=== PATIENT | female | born 1940 | race Two or more races ===

== ENCOUNTER 2024-09-01 11:03 | Emergency (ER) | payer OTHER ==
[~2024-09-01] VITALS: Ht 157.5 cm; Wt 60.8 kg
[2024-09-01] MEDS ORDERED: PEPCID AC20 MG (11:10)
[2024-09-01] MEDS ORDERED: SYNTHROID50 MCG PO (11:10)
[2024-09-01] MEDS ORDERED: SIMVASTATIN20 MG PO (11:10)
[2024-09-01] MEDS ORDERED: CEFTRIAXONE SODIUM 1,000 MG VIAL IM STA (12:14)
[2024-09-01] MEDS ORDERED: KETOROLAC TROMETHAMINE 15 MG VIAL IM STA (12:14)
[2024-09-01] MEDS ORDERED: CEFTRIAXONE SODIUM 1,000 MG VIAL ONE (12:25)
[2024-09-01] MEDS ORDERED: KETOROLAC TROMETHAMINE 30 MG VIAL ONE (12:25)
[2024-09-01 13:02] LABS: BASO % 0.6 % (0.1-1.2); EOS # 0.14 (0.04-0.54); EOS % 1.6 % (0.7-7.0); HEMOGLOBIN 12.9 g/dL (11.2-15.7); LYMPH # 2.68 (1.18-3.74); LYMPH % 30.6 % (19.3-53.1); MONO # 0.52 (0.24-0.82); MONO % 5.9 % (4.7-12.5); NEUT # 5.34 (1.56-6.13); NEUT % 60.8 % (34.0-71.1); PLATELET COUNT 331 K/uL (163-369); RED BLOOD COUNT 4.78 M/uL (3.93-5.22); RED CELL DISTRIBUTION WIDTH 12.8 % (11.6-14.4)
[2024-09-01 14:04] LABS: CALCIUM 9.5 mg/dL (8.5-10.1); CREATININE SERUM 0.95 mg/dL (0.55-1.02); GFR 55.77; POTASSIUM 4.09 mEq/L (3.5-5.1)
== END 2024-09-01 13:58 | disposition home or self-care (01) ==
LOC: ER 11:26
PROVIDERS: General Practice
DX: M51.369 Other intervertebral disc degeneration, lumbar region without mention of lumbar back pain or lower extremity pain (principal); M79.3 Panniculitis, unspecified; L97.919 Non-pressure chronic ulcer of unspecified part of right lower leg with unspecified severity; L30.9 Dermatitis, unspecified; R20.2 Paresthesia of skin; R20.0 Anesthesia of skin; Z91.013 Allergy to seafood
CPT/HCPCS: 36415; 72100; 96372; 99283; J0696; J1885